=== PATIENT | female | born 1955 | race Caucasian/White ===

== ENCOUNTER 2017-09-07 07:03 | Inpatient (IN) | payer MEDICARE, MEDICAID ==
--- NOTE | 2017-08-25 21:44 | HP ---
CC: Dr. Erick Smith * ADMISSION HISTORY AND PHYSICAL: DATE OF ADMISSION: 09/07/17 ATTENDING SURGEON: Dr. Giovany Stuart.* (DICTATED BY KAYA GALINDO) CHIEF COMPLAINT: Recurrent ventral hernia. HISTORY OF PRESENT ILLNESS: This is a 62-year-old female, who is a relatively poor historian, who presents with complaint of upper abdominal pain and bulge for at least the past year, though the patient has difficulty being specific in terms of time and symptoms. She relates pain in the upper abdomen, but also in the lower abdomen and pelvis. She states that the pain is worse with bending and lifting and sometimes with eating to the point where she has occasional vomiting. She apparently did try to use an abdominal binder without benefit. She has undergone multiple previous abdominal surgeries including a gastric pyloroplasty in 2012 for chronic gastric outlet obstruction via an upper midline incision. This was followed by a laparoscopic repair of a hernia in that incision in February 2014 done at [facility]. That surgery was done laparoscopically utilizing a 15 x 15 cm Physiomesh with absorbable tacks. The patient was seen in the office by Dr. Stuart on 08/07/17. Exam noted an incision in the upper midline of approximately 12 cm in length between the umbilicus and the xiphoid. A hernia was palpable at the lower end of this incision measuring at least 5 cm across. Exam was somewhat limited by body habitus. The patient underwent noncontrast CT scan on 08/11/17 first of all showing a questionable nodule in the left lung base, which the patient is aware of and was instructed to discuss with her primary care provider regarding indications for further imaging. There were noted to be 2 fat containing hernias in the upper abdomen, the superior defect measuring 4.5 cm, the inferior one measuring 2.5 cm. There was no bowel present in either hernia. There was some degenerative lumbar spine disease. Dr. Stuart has discussed with the patient the indications for surgery, the surgical methods, the risks, benefits, and alternatives. She would like to proceed as scheduled with open repair of recurrent ventral hernia with mesh with possible component separation. PAST MEDICAL HISTORY: Cervical and ovarian cancer (status post MAMADOU with BSO followed by chemotherapy and radiation therapy), chronic low back pain, attention deficit disorder, restless leg syndrome, depression, anxiety, fibromyalgia, hypertension, Buerger's disease as well as ongoing tobacco use. 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 No reported surgical or anesthesia complications. CURRENT MEDICATIONS: 1. Nexium 40 mg once daily. 2. Cymbalta 60 mg and 30 mg 1 tablet each for a total of 90 mg once daily. 3. Losartan 25 mg once daily. 4. Hydrochlorothiazide 25 mg once daily. 5. Seroquel 100 mg once daily. 6. Amitriptyline 50 mg q.h.s. 7. Gabapentin 600 mg t.i.d. 8. Alprazolam 0.5 mg q.h.s. DRUG ALLERGIES: None known. FAMILY HISTORY: Negative for anesthesia problems, bleeding, or clotting disorders. SOCIAL HISTORY: The patient lives in a supportive living setting. She has 2 roommates. She is a smoker of 1 pack per day for at least the past 45 years. We discussed benefits of smoking cessation particularly around the time of surgery. She has used nicotine patches recently, but not consistently. She denies recent use of alcohol or recreational drugs, though has had a drug addiction history including admission for rehab. REVIEW OF SYSTEMS: General: No recent constitutional symptoms, though her complaints are many and varied. At the end of our discussion, her main objective was to obtain a prescription for pain medication, which I declined based on her past drug abuse history as well as the length of time that she has had an apparent hernia (my concern also was that she would use all of the pain medication that was primarily intended for postoperative use.) Eyes: No recent changes in vision or other problems reported. Ears, Nose, Throat: She has a full upper denture, otherwise is edentulous. No swallowing difficulties. Cardiovascular: No chest pain, palpitations, or history of heart murmur. She is treated for hypertension. Respiratory: Active smoking history. No history of asthma. Occasional shortness of breath with exertion. GI: As above per HPI. I did not inquire regarding colonoscopy. : No problems reported. JOURNALISTS AND OTHER WRITERS: She states that she has not had breast or pelvic exams done in recent years. She is advised to have these done through her primary care office or referral. No interval problems reported. Musculoskeletal: Chronic low back pain, fibromyalgia. Neuro/Psych: Anxiety, depression, ADD, insomnia. The patient is also concerned regarding jerking motions that she is having that have increased of late. She was advised to contact her PCP. PHYSICAL EXAMINATION GENERAL: Well-nourished, obese female, at points in no acute distress and at other points visibly anxious and teary. VITAL SIGNS: Height 65 inches, weight 200 pounds, BMI 33. Blood pressure 120/ 70, pulse 80s and regular. HEENT: Pupils are equal, round, and reactive. EOMs intact. No conjunctival pallor. Oropharynx: Full upper denture. No remaining teeth. No intraoral lesions noted. NECK: No cervical or supraclavicular lymphadenopathy. No thyromegaly or masses. LUNGS: Clear to auscultation. No rales or wheezes. HEART: Regular rate and rhythm. No murmur noted. BREASTS: Not examined. ABDOMEN: Well-healed upper midline incision as well as what appears to be a Pfannenstiel incision. There is some intertrigo at the lower pannus. There is a visible and palpable bulge in the upper mid abdomen consistent with Dr. Stuart 's exam and known hernia. The area is not particularly tender to palpation. There is no significant tenderness to palpation elsewhere in the abdomen and no palpable masses or hepatosplenomegaly. GENITALIA: Not done. RECTAL: Not done. BACK: Some minor LS spine tenderness. No CVA tenderness. EXTREMITIES: No edema. She is status post amputation, right index finger. NEUROLOGICAL: Anxious and teary, poor historian with rambling conversation, often rambling responses not pertinent to the question. Occasional jerking motions with her head and upper extremities. SKIN: Warm and dry. No suspicious rashes or lesions noted. She does have a heavily callused lesion on the plantar surface of her left foot likely consistent with a plantar wart. No skin breakdown. See also for extremities. IMPRESSION: Recurrent ventral hernia. PLAN: Open repair of recurrent ventral hernia with mesh; possible component separation. KAYA GALINDO [id number]/[facility] #: [id number] MTDD
[~2017-09-07 07:03] MED LIST: Buffered Lidocaine 0.9% SYRIN* 5 ML/SYR SYRINGE INTRADERM ONE; Dexamethasone IV* 4 MG/ML 1 ML (4 MG) IV SLOW PU ONE; Levalbuterol 1.25MG/0.5ML NEB INH ONE; Nicotine PATCH 14 MG/24 HR* PATCH TRANSDERM ONE; Sodium Citrate/Citric Acid* 15 ML UDC PO ONE
[2017-09-07] MEDS ORDERED: Sodium Citrate/Citric Acid* 15 ML UDC ONE (07:31)
[2017-09-07] MEDS ORDERED: ceFAZolin 2 GM PREMIX (*) 2 GM/50 ML BAG IVPB ONE (07:31)
[2017-09-07] MEDS ORDERED: Dexamethasone IV* 4 MG/ML 1 ML (4 MG) ONE (07:31)
[2017-09-07] MEDS ORDERED: Heparin VIAL(*) 5000 UNITS/ML VIAL (FIVE THOUSAND) ONE (07:34)
[2017-09-07] MEDS ORDERED: Levalbuterol 1.25MG/0.5ML NEB ONE (07:37)
[2017-09-07] MEDS ORDERED: fentaNYL* 50 MCG/ML 2 ML VIAL (100 MCG VIAL) ONE ×3 (07:57→11:42)
[2017-09-07] MEDS ORDERED: Propofol* 10 MG/ML 20 ML BTL IV PUSH ONE (07:58)
[2017-09-07] MEDS ORDERED: Midazolam* 1 MG/ML 2 ML VIAL (2 MG) ONE (07:58)
[2017-09-07] MEDS ORDERED: Rocuronium* 10 MG/ML VIAL ONE (07:58)
[2017-09-07] MEDS ORDERED: Lidocaine 2% PF * 5 ML VIAL ONE (07:58)
[2017-09-07] MEDS ORDERED: Bupivacaine 0.25% SDV* 30 ML ONE (08:40)
[2017-09-07] MEDS ORDERED: HYDROmorphone INJ* 1 MG/ML CARPUJECT SYRINGE ONE (10:03)
[2017-09-07] MEDS ORDERED: Scopolamine 1.5 mg* PATCH TRANSDERM PRN (10:09)
[2017-09-07] MEDS ORDERED: Acetaminophen IV 1GM/100ML * 1,000 MG/100 ML VIAL IVPB ONE (10:09)
[2017-09-07] MEDS ORDERED: Ondansetron INJ* 2 MG/ML VIAL IV PRN (10:09)
[2017-09-07] MEDS ORDERED: Naloxone* 0.4 MG/ML 1 ML VIAL IV PRN (10:09)
[2017-09-07] MEDS ORDERED: Glycopyrrolate IV* 0.2 MG/ML 1 ML VIAL ONE (10:32)
[2017-09-07] MEDS ORDERED: Neostigmine Methylsulfate* 1 MG/ML 10 ML VIAL (1 mg/ml) ONE (10:32)
[2017-09-07] MEDS ORDERED: Acetaminophen IV 1GM/100ML * 100 ML ONE (10:58)
--- NOTE | 2017-09-07 11:05 | OP ---
Operative Report - Blank - Operative Report Date of Operation: 09/07/17 Note: Preop Dx: ventral hernia Postop Dx: same Procedure: open repair ventral hernia Anesthesia: GET Surgeon: Narciso Asst: KAYA Senior; PREETI Carrillo Fluids: 1000 ml RL EBL: < 50 ml Drains: none Specimen: none Findings: dictated
[2017-09-07] MEDS: fentaNYL* 50 MCG/ML 2 ML VIAL (100 MCG VIAL) IV PRN ×4 (11:11→11:51)
[2017-09-07] MEDS ORDERED: Nicotine PATCH 14 MG/24 HR* PATCH TRANSDERM ONE (11:30)
[2017-09-07] MEDS ORDERED: HYDROmorphone INJ* 2 MG/ML CARPUJECT SYRINGE ONE (11:33)
[2017-09-07] MEDS: HYDROmorphone INJ* 1 MG/ML CARPUJECT SYRINGE IV PRN ×2 (11:33→11:57)
[2017-09-07] MEDS ORDERED: Ibuprofen TAB* 400 MG PO PRN (11:39)
[2017-09-07] MEDS ORDERED: Acetaminophen TAB* 325 MG PO PRN (11:39)
[2017-09-07] MEDS ORDERED: Albuterol HFA INHALER* 8 gm MDI INH PRN (11:39)
[2017-09-07] MEDS ORDERED: Ondansetron ODT TAB* 4 MG SL PRN (11:43)
[2017-09-07] MEDS ORDERED: Magnesium Hydroxide LIQ* 30 ML UDC PO PRN (11:44)
[2017-09-07] MEDS ORDERED: oxyCODONE TAB* 5 MG TAB ONE (11:58)
[2017-09-07] MEDS: oxyCODONE TAB* 5 MG TAB PO PRN ×2 (11:59→12:00)
[2017-09-07] MEDS ORDERED: Morphine PCA ADULT* 5 MG/ML 30 ML PCA SCH ×2 (12:00→14:27)
[2017-09-07] MEDS ORDERED: Morphine PCA ADULT* 5 MG/ML 30 ML ONE (12:17)
[2017-09-07] MEDS: Gabapentin CAP(*) 300 MG PO SCH ×2 (14:13→20:10)
[2017-09-07] MEDS: ALPRAZolam TAB* 0.5 MG PO SCH ×2 (14:42→20:09)
[2017-09-07] MEDS: Docusate CAP* 100 MG PO SCH (20:09)
[2017-09-07] MEDS: Amitriptyline TAB* 50 MG PO SCH (20:10)
[2017-09-07] MEDS: QUEtiapine TAB* 100 MG PO SCH (20:11)
--- NOTE | 2017-09-08 08:04 | PN ---
Progress Note - Progress Note Date of Service: 09/08/17 Note: POD#1 s/p ventral hernia repair Afeb, VS OK Voiding, chevy po's no N/V Pain still an issue, though FRAME ALIGNER seems to be adequate. Xanax helping. Alert and coherent. Color good. Abd: soft, sore, drsg clean, decreased BS Cont FRAME ALIGNER PO's as chevy Cont dulcolax Cont Xanax Ambulate as chevy Nicotine patch Disch when pain control OK
[2017-09-08] MEDS ORDERED: Nicotine Patch Removal NOTE PATCH OFF PRN (08:10)
[2017-09-08] MEDS: Losartan TAB* 25 MG PO SCH (08:11)
[2017-09-08] MEDS: Docusate CAP* 100 MG PO SCH ×2 (08:11→21:08)
[2017-09-08] MEDS: ALPRAZolam TAB* 0.5 MG PO SCH (08:11)
[2017-09-08] MEDS: Gabapentin CAP(*) 300 MG PO SCH ×3 (08:11→21:07)
[2017-09-08] MEDS: DULoxetine DR CAP* 30 MG CAP.DR PO SCH (08:11)
[2017-09-08] MEDS: Omeprazole CAP* 20 MG PO SCH (08:11)
[2017-09-08] MEDS: Nicotine PATCH 14 MG/24 HR* PATCH TRANSDERM SCH (08:26)
--- NOTE | 2017-09-08 08:43 | OP ---
CC: Dr. Erick Smith * DATE OF OPERATION: 09/07/17 - ROOM #335 DATE OF : 59 SURGEON: Giovany Stuart MD CAP SEWER: Nadeen. ANESTHESIOLOGIST: Dr. Amezcua. ANESTHESIA: General anesthetic. PRE-OP DIAGNOSIS: Recurrent ventral hernia. POST-OP DIAGNOSIS: Recurrent ventral hernia. OPERATIVE PROCEDURE: Open repair of recurrent ventral hernia with mesh using a retrorectus repair. DESCRIPTION OF PROCEDURE: The patient was supine on the operating room table. After adequate general anesthesia, compression stockings, Rand Hugger warmer, and intravenous antibiotics, the abdomen was prepped with antiseptic, draped in a sterile fashion. The previous upper midline incision was entered and it was extended a little inferior to this site as well. A total of about 6 inch incision. The hernias were readily identified. The inferior one was maybe 5 cm across, the superior one maybe 3 cm across. The defects were little smaller than this. They were by about 2 cm fascial bridge. This bridge was opened up and the abdominal contents were dissected away from the abdominal wall. It was felt in this case that a retrorectus repair would work nicely and the rectus sheath was then mobilized posteriorly and after checking for hemostasis, the posterior rectus sheath was approximated using 0 Vicryl sutures. The operative field was irrigated and free fluid was suctioned out and approximately 15 x 20 cm mesh was chosen. This was placed into the defect and tacked up underneath using the spiral tacker and then the midline fascia was closed using running #1 Vicryl, which was also tacked to the mesh. The adipose was irrigated and approximated using 3-0 Vicryl and the skin with surgical bin followed by a sterile dressing. She tolerated the procedure well, was awakened, extubated, and brought to Recovery in good condition. No complications. No drains. No pathologic specimens. Sponge and instrument counts correct. Estimated blood loss was 30 mL. [id number]/[facility] #: [id number] [facility]
[2017-09-08] MEDS ORDERED: oxyCODONE TAB* 5 MG TAB PO PRN (11:02)
[2017-09-08] MEDS ORDERED: oxyCODONE/Acetamin 5/325 MG* TAB PO PRN (11:47)
[2017-09-08] MEDS: clonazePAM TAB(*) 0.5 MG PO PRN ×3 (13:49→21:08)
[2017-09-08] MEDS: Amitriptyline TAB* 50 MG PO SCH (21:07)
[2017-09-08] MEDS: QUEtiapine TAB* 100 MG PO SCH (21:07)
--- NOTE | 2017-09-09 08:24 | PN ---
Progress Note - Progress Note Date of Service: 09/09/17 SOAP: Subjective: Pt seen and examined. Continued abdo pain. no nausea today. no flatus; appetite improving Objective: af normotensive, HR 90-100s, O2 sat 80s on RA, to high 90s on mask UO good lungs: decreased BS at R base, crackles at L base abdo: soft/ mild distension, tender w/o rebound dressing removed, staple line intact; noredness, dressing and binder replaced no calf tenderness Assessment: POD 2 ventral hernia repair, respiratory compromise Plan: O2 pain control OOB continue I Os CXR advance diet home meds
[2017-09-09] MEDS ORDERED: Morphine PCA ADULT* 5 MG/ML 30 ML PCA SCH ×2 (08:36→13:04)
[2017-09-09] MEDS: Nicotine PATCH 14 MG/24 HR* PATCH TRANSDERM SCH (08:46)
[2017-09-09] MEDS: DULoxetine DR CAP* 30 MG CAP.DR PO SCH (08:47)
[2017-09-09] MEDS: Gabapentin CAP(*) 300 MG PO SCH ×3 (08:47→21:23)
[2017-09-09] MEDS: clonazePAM TAB(*) 0.5 MG PO PRN ×2 (08:47→16:57)
[2017-09-09] MEDS: Losartan TAB* 25 MG PO SCH (08:47)
[2017-09-09] MEDS: Docusate CAP* 100 MG PO SCH ×2 (08:47→21:23)
[2017-09-09] MEDS: Heparin VIAL(*) 5000 UNITS/ML VIAL (FIVE THOUSAND) SUBCUT SCH ×3 (08:48→21:24)
[2017-09-09] MEDS: Omeprazole CAP* 20 MG PO SCH (08:48)
[2017-09-09] MEDS: oxyCODONE/Acetamin 5/325 MG* TAB PO PRN (10:04)
--- NOTE | 2017-09-09 11:40 | RAD ---
INDICATION: Shortness of breath status post hernia repair COMPARISON: None TECHNIQUE: PA and lateral views of the chest were obtained. FINDINGS: There is a moderate degree of cardiomegaly. There is patchy density overlying the bilateral lungs. The left hemidiaphragm is obscured and medial portion. There is a small degree of costophrenic angle blunting. Visualized bones are normal for the patient's age. There is no radiographic evidence of free air beneath the diaphragm IMPRESSION: CHEST X-RAY APPEARANCE COULD BE COMPATIBLE WITH PULMONARY EDEMA, PNEUMONITIS OR DRUG TOXICITY. THERE IS POTENTIALLY DENSITY AT THE LEFT LUNG BASE, EITHER ATELECTASIS OR PNEUMONIA.
[2017-09-09] MEDS: Amitriptyline TAB* 50 MG PO SCH (21:22)
[2017-09-09] MEDS: QUEtiapine TAB* 100 MG PO SCH (21:22)
[2017-09-10] MEDS: Heparin VIAL(*) 5000 UNITS/ML VIAL (FIVE THOUSAND) SUBCUT SCH ×3 (05:48→21:40)
[2017-09-10] MEDS: Nicotine PATCH 14 MG/24 HR* PATCH TRANSDERM SCH (08:50)
[2017-09-10] MEDS: Omeprazole CAP* 20 MG PO SCH (08:52)
[2017-09-10] MEDS: Gabapentin CAP(*) 300 MG PO SCH ×3 (08:52→21:38)
[2017-09-10] MEDS: Docusate CAP* 100 MG PO SCH ×2 (08:52→21:37)
[2017-09-10] MEDS: Losartan TAB* 25 MG PO SCH (08:52)
[2017-09-10] MEDS: clonazePAM TAB(*) 0.5 MG PO PRN ×2 (09:00→18:35)
--- NOTE | 2017-09-10 10:09 | PN ---
Progress Note - Progress Note Date of Service: 09/10/17 SOAP: Subjective: Pt seen and examined. Continued abdo pain. no nausea today. no flatus. Transferred to ICU because of low O2 sat and somnolence. Objective: af HR 90-100s, O2 sat high 80s on RA, UO good lungs: crackles b/l abdo: soft/ distended, less tender; hypoactive BS but present in all 4 no calf tenderness CXR reviewed Assessment: POD 3 ventral hernia repair, respiratory compromise, ileus Plan: O2 pain control OOB continue I Os transfer to floor
[2017-09-10] MEDS ORDERED: Scopolamine PATCH Remove* 1 NOTE MISC PATCH OFF ONE (10:10)
[2017-09-10] MEDS: oxyCODONE/Acetamin 5/325 MG* TAB PO PRN ×4 (10:38→22:35)
[2017-09-10 11:07] LABS: EGFR Non-African American 43.7 (>60)
[2017-09-10] MEDS: DULoxetine DR CAP* 30 MG CAP.DR PO SCH (11:27)
[2017-09-10] MEDS: Ibuprofen TAB* 400 MG PO SCH ×2 (13:10→18:33)
[2017-09-10] MEDS: QUEtiapine TAB* 100 MG PO SCH (21:37)
[2017-09-10] MEDS: Amitriptyline TAB* 50 MG PO SCH (21:37)
[2017-09-11] MEDS: Ibuprofen TAB* 400 MG PO SCH ×2 (00:13→05:29)
[2017-09-11] MEDS: Heparin VIAL(*) 5000 UNITS/ML VIAL (FIVE THOUSAND) SUBCUT SCH ×3 (05:31→21:21)
--- NOTE | 2017-09-11 08:25 | PN ---
Progress Note - Progress Note Date of Service: 09/11/17 Note: POD#4 s/p ventral hernia repair Afeb, VS noted Alert and coherent, though seems a little drugged Mild pain, tolerating oral meds. Reilly po's, No N/V, voiding, no stool Abd soft, obese, min tender, incis clean, BS decreased Plan: Stim bowel Home when able to do so safely.
[2017-09-11] MEDS ORDERED: Magnesium CITRATE* 300 ML BTL PO ONE (08:30)
[2017-09-11] MEDS: Losartan TAB* 25 MG PO SCH (09:16)
[2017-09-11] MEDS: Gabapentin CAP(*) 300 MG PO SCH ×3 (09:16→21:19)
[2017-09-11] MEDS: oxyCODONE/Acetamin 5/325 MG* TAB PO PRN ×4 (09:17→23:53)
[2017-09-11] MEDS: clonazePAM TAB(*) 0.5 MG PO PRN ×3 (09:17→21:20)
[2017-09-11] MEDS: Omeprazole CAP* 20 MG PO SCH (09:17)
[2017-09-11] MEDS: Docusate CAP* 100 MG PO SCH ×2 (09:17→21:19)
[2017-09-11] MEDS: DULoxetine DR CAP* 30 MG CAP.DR PO SCH (10:18)
[2017-09-11] MEDS: Nicotine PATCH 14 MG/24 HR* PATCH TRANSDERM SCH (10:21)
[2017-09-11] MEDS: QUEtiapine TAB* 100 MG PO SCH (21:19)
[2017-09-11] MEDS: Amitriptyline TAB* 50 MG PO SCH (21:20)
[2017-09-12] MEDS: Heparin VIAL(*) 5000 UNITS/ML VIAL (FIVE THOUSAND) SUBCUT SCH (05:26)
[2017-09-12] MEDS: oxyCODONE/Acetamin 5/325 MG* TAB PO PRN ×2 (05:30→11:19)
[2017-09-12] MEDS: Gabapentin CAP(*) 300 MG PO SCH ×2 (08:12→11:18)
[2017-09-12] MEDS: DULoxetine DR CAP* 30 MG CAP.DR PO SCH (08:12)
[2017-09-12] MEDS: Docusate CAP* 100 MG PO SCH (08:12)
[2017-09-12] MEDS: Omeprazole CAP* 20 MG PO SCH (08:12)
[2017-09-12] MEDS: Losartan TAB* 25 MG PO SCH (08:12)
[2017-09-12] MEDS: clonazePAM TAB(*) 0.5 MG PO PRN ×2 (08:19→11:18)
[2017-09-12] MEDS: Nicotine PATCH 14 MG/24 HR* PATCH TRANSDERM SCH (08:22)
[2017-09-12 10:08] VITALS: BP 101/48
--- NOTE | 2017-09-12 11:31 | PN ---
Progress Note - Progress Note Date of Service: 09/12/17 Note: S: POD #5. Pain controlled w/ Percocet. Ambulating. Reilly diet. Having BMs. Using O2 at 4L. Denies SOB. Current Medications Acetaminophen (Tylenol Tab*) 650 mg PO Q4H PRN PRN Reason: PAIN Last Admin: 09/09/17 16:56 Dose: 650 mg Albuterol (Ventolin Hfa Inhaler*) 1 puff INH Q6H PRN PRN Reason: SHORTNESS OF BREATH Amitriptyline HCl (Elavil Tab*) 50 mg PO BEDTIME [facility] Last Admin: 09/11/17 21:20 Dose: 50 mg Clonazepam (Klonopin Tab(*)) 0.5 mg PO TID PRN PRN Reason: ANXIETY Last Admin: 09/12/17 11:18 Dose: 0.5 mg Docusate Sodium (Colace Cap*) 100 mg PO BID [facility] Last Admin: 09/12/17 08:12 Dose: 100 mg Duloxetine HCl (Cymbalta Cap*) 90 mg PO QAM [facility] Last Admin: 09/12/17 08:12 Dose: 90 mg Gabapentin (Neurontin Cap(*)) 600 mg PO TID [facility] Last Admin: 09/12/17 11:18 Dose: 600 mg Heparin Sodium (Porcine) (Heparin Vial(*)) 5,000 units SUBCUT Q8HR [facility] Last Admin: 09/12/17 05:26 Dose: 5,000 units Losartan Potassium (Cozaar Tab*) 25 mg PO QAM [facility] Last Admin: 09/12/17 08:12 Dose: 25 mg Magnesium Hydroxide (Milk Of Magnesia Liq*) 30 ml PO Q24H PRN PRN Reason: CONSTIPATION Nicotine (Nicotine Patch 14 Mg/24 Hr*) 1 patch TRANSDERM DAILY [facility] Last Admin: 09/12/17 08:22 Dose: 1 patch Omeprazole (Prilosec Cap*) 20 mg PO QAM [facility] PRN Reason: Protocol Last Admin: 09/12/17 08:12 Dose: 20 mg Ondansetron HCl (Zofran Odt Tab*) 4 mg SL Q6H PRN PRN Reason: NAUSEA/VOMITING Oxycodone/Acetaminophen (Percocet 5/325 Tab*) 2 tab PO Q4H PRN PRN Reason: PAIN Last Admin: 09/12/17 11:19 Dose: 2 tab Oxycodone/Acetaminophen (Percocet 5/325 Tab*) 1 tab PO Q4H PRN PRN Reason: PAIN Last Admin: 09/11/17 19:22 Dose: 1 tab Pharmacy Profile Note (Nicotine Patch Removal Note*) 1 note PATCH OFF 2100 PRN PRN Reason: *PATIENT MAY REMOVE AT NIGHT* Last Admin: 09/08/17 21:10 Dose: 1 note Quetiapine Fumarate (Seroquel Tab*) 100 mg PO BEDTIME [facility] Last Admin: 09/11/17 21:19 Dose: 100 mg O: Vital Signs - 8 hr 09/12/17 09/12/17 09/12/17 05:30 07:25 07:30 Temperature 98.4 F Pulse Rate 84 Respiratory 16 16 16 Rate Blood Pressure 101/48 (mmHg) O2 Sat by Pulse 95 Oximetry 09/12/17 09/12/17 09/12/17 08:12 08:19 11:18 Temperature Pulse Rate Respiratory 18 18 16 Rate Blood Pressure (mmHg) O2 Sat by Pulse Oximetry 09/12/17 11:19 Temperature Pulse Rate Respiratory 16 Rate Blood Pressure (mmHg) O2 Sat by Pulse Oximetry Intake and Output Last 24 Hours 09/10/17 09/11/17 09/12/17 09/13/17 06:59 06:59 06:59 06:59 Intake Total 1071 1989 930 200 Output Total 621 122 8372 Balance 221 1790 -170 200 Weight 200 lb Intake: IV Fluids 471 NS (0.9%) 471 IVPB 70 NS (0.9%) 70 Oral 530 1989 930 200 Output: Urine 198 645 1614 Other: Estimated Void Large Medium # Bowel Movements 0 Estimated Stool Amount Large # Voids 1 Gen: WN; NAD Heart: reg Lungs: clear upper ricci; few bibasilar crackles Abd: incision healing well; bin intact; no signs of infection; soft; mild to moderate tenderness to palp A: s/p open repair ventral incisional hernia w/ mesh, improved P: home today; f/u sched w/ Dr. Stuart as well as the hospitalist outpt clinic; Rx for Percocet sent to her pharm last week; new Rxs for Nicotine patch (14 mg/ 24hr) and clonazepam also sent today. Instructions reviewed.
--- NOTE | 2017-09-13 05:07 | DS ---
CC: [facility] [place] [facility] * DISCHARGE SUMMARY: DATE OF ADMISSION: 09/07/17 DATE OF DISCHARGE: 09/12/17 ATTENDING SURGEON: Dr. Giovany Stuart.* (DICTATED BY KAYA GALINDO) HOSPITAL COURSE: Please refer to admission history and physical and operative note for details. The patient was taken to the operating room on 09/07/17 and underwent an open repair of ventral incision hernia with mesh by Dr. Stuart. Her postoperative course has been characterized primarily by pain management. She has gradually progressed to the point where she is able to control her pain with oral Percocet only at this point. She also did require supplemental nasal oxygen for low saturations. She has been maintained on a nicotine patch for assistance with smoking cessation. She had used Xanax as a baseline anxiolytic , but prefers clonazepam; a prescription for this (0.5 mg t.i.d. p.r.n. anxiety #20) was sent to her pharmacy along with a nicotine patch and Percocet prescription ([facility] checked). DISCHARGE PHYSICAL EXAMINATION: Vital signs as of the morning of discharge: Temperature 98.4, blood pressure 101/48, pulse 84, respirations 16, saturation 95% on 4 L (nursing staff asked to titrate down to determine home oxygen needs) . Heart: Regular rate and rhythm. No murmur. Lungs are clear to auscultation in the upper ricci. She does have some bibasilar crackles. Abdomen: Upper midline incision healing well without evidence of infection. C[place]et intact. No active bleeding or drainage. Abdominal binder in place. Abdomen soft with mild to moderate tenderness as would be expected. IMPRESSION: Status post open repair of ventral incisional hernia with mesh. PLAN: Home today. Instructions were reviewed regarding wound care and activity. See medication reconciliation (she will resume her usual home meds with the exception that alprazolam was changed to clonazepam, which she understands will need to be continued by her medical primary if she continues to need it (she is in the process of switching primary care providers). She does have an appointment for followup with Dr. Stuart on 09/18/17 and also with the hospitalist outpatient followup program on 09/20/17. FARZA[place], [place] [id number]/[facility] #: [id number] MTDCarol
== END 2017-09-12 11:30 | disposition home or self-care (01) | DRG 355 ==
LOC: OR 07:03 → SSU 13:38 → ICU 09-09 12:42 → SSU 09-10 12:11
PROVIDERS: ADMIT Surgery; ATTEND Surgery
PROC: 0WUF0JZ Supplement Abdominal Wall with Synthetic Substitute, Open Approach (ICD-10-PCS; principal; 2017-09-07 08:45)
DX: K43.2 Incisional hernia without obstruction or gangrene (principal); M54.5 Low back pain; F90.9 Attention-deficit hyperactivity disorder, unspecified type; F41.9 Anxiety disorder, unspecified; G25.81 Restless legs syndrome; F32.9 Major depressive disorder, single episode, unspecified; M79.7 Fibromyalgia; I10 Essential (primary) hypertension; I73.1 Thromboangiitis obliterans [Buerger's disease]; F17.210 Nicotine dependence, cigarettes, uncomplicated; F19.21 Other psychoactive substance dependence, in remission; E66.9 Obesity, unspecified; Z79.899 Other long term (current) drug therapy; Z68.33 Body mass index [BMI] 33.0-33.9, adult; Z85.41 Personal history of malignant neoplasm of cervix uteri; Z85.43 Personal history of malignant neoplasm of ovary
CPT/HCPCS: 36415; 71046; 80048; A9270-GY; C1781; J0690; J1100; J1170; J1644; J2250; J2270; J2704; J2710; J3010